=== PATIENT | female | born 1990 | race Hispanic/Latino ===

== ENCOUNTER 2017-09-22 09:20 | Inpatient (IN) | payer MEDICAID, OTHER, SELFPAY ==
[2017-09-22] MEDS: Lactated Ringer's 1,000 ML IV SCH ×3 (09:20→14:39)
[2017-09-22] MEDS ORDERED: Acetaminophen 500 MG TAB PO PRN (09:47)
[2017-09-22] MEDS ORDERED: Lidocaine 1% (PF) 30 ML VIAL SC PRN (09:47)
[2017-09-22] MEDS ORDERED: Promethazine HCl 25 MG/ML VIAL IM PRN ×2 (09:47→10:54)
[2017-09-22] MEDS ORDERED: Ondansetron HCl/PF 4 MG/2 ML Vial IVP PRN ×2 (09:47→10:54)
[2017-09-22 10:08] VITALS: BMI 27.3
[2017-09-22 10:10] LABS: Hemoglobin 13.2 g/dL (12.0-16.0); Mean Corpuscular HGB CONC 34.7 g/dL (32.0-36.0); Mean Corpuscular Hemoglobin 31.1 pg (27.0-31.0); Mean Corpuscular Volume 89.7 fl (81.0-99.0); Mean Platelet Volume 9.2 fL (7.4-10.4); Platelet Count 174 thou/uL (130-400); RBC Distribution Width 13.3 % (11.5-14.5); Red Blood Cell (RBC) Count 4.23 mill/uL (4.20-5.40); White Blood Cell (WBC) Count 9.7 thou/uL (4.8-10.8)
[2017-09-22] MEDS ORDERED: Fentanyl 4 mcg/Marc 0.1% Cadd 100 ML ONE (10:15)
[2017-09-22 10:46] LABS: HBSAg Index 0.25 S/CO (0-0.99); Hep B Surf Ag Non-Reactive S/CO (NonReactive)
[2017-09-22 10:54] LABS: Syphilis Antibody Nonreactive (Nonreactive); Syphilis Antibody Index 0.71 S/CO (<1.00 Non-Reactive)
[2017-09-22] MEDS ORDERED: Lactated Ringer's 500 ML IV PRN (10:54)
[2017-09-22] MEDS ORDERED: diphenhydrAMINE 50 MG/ML VIAL IVP PRN (10:54)
[2017-09-22] MEDS ORDERED: Acetaminophen 325 MG TAB PO PRN (10:54)
[2017-09-22] MEDS ORDERED: ePHEDrine/0.9% NaCl/PF SYRINGE 50 mg/10 ml SLOW IVP PRN (10:54)
[2017-09-22] MEDS ORDERED: Naloxone HCl 0.4 mg/ml Vial IVP PRN ×2 (10:54)
[2017-09-22] MEDS ORDERED: Eucerin (Mineral Oil/Petrolatum,White) 30 gm Jar TOP PRN (10:54)
[2017-09-22] MEDS ORDERED: Communication Order-Pharmacy FS SCH (11:00)
[2017-09-22] MEDS ORDERED: ePHEDrine/0.9% NaCl/PF SYRINGE 50 mg/10 ml ONE (11:00)
[2017-09-22] MEDS ORDERED: Bupivacaine/Epinephrine 0.25% 30 ML VIAL ONE (11:00)
[2017-09-22] MEDS ORDERED: Fentanyl 4mcg/Marcaine 0.1% Cassette 100 ML EPIDURAL SCH (11:00)
--- NOTE | 2017-09-22 11:12 | PDOC.LDHP ---
Labor and Delivery H&P Chief complaint: contractions HPI: 27 year old at 38.4 wks by LMP/11.6 wk U/S presents to L&D with contractions. No complications in current . Current gestational age (weeks): 38 (38.4 wks) Due date: 10/02/17 Dating criteria: last menstrual period, first trimester ultrasound Grav: 2 Para: 1 OB History Details: No complications Current complications: none Abnormal US findings: No Current medications: pre- vitamins Previous surgical history: none Social history: none - Physical Exam Vital signs reviewed and normal: yes General: NAD, breathing through contractions Heart: RRR Lungs: nonlabored breathing Abdomen: NTTP Extremeties: no edema FHT: category 1, variability present - Vaginal Exam cm dilated: 8 Effacement: 90% Station: 0 - OB Labs Blood type: O RH: positive Antibody Screen: negative HIV: negative RPR: negative HEPSAg: negative 1 hour GCT: negative GBS: negative Rubella: immune - Assessment L&D Assessment: term patient in labor - Plan Plan: admit to L&D -: Expectant management <Ruth Poon - Last Filed: 09/22/17 11:10> <Vishnu Centeno - Last Filed: 09/24/17 09:46> Allergies/Adverse Reactions: Allergies Allergy/AdvReac Type Severity Reaction Status Date / Time No Known Allergies Allergy Verified 11/09/15 14:31 Attending Addendum - Attending Addendum I personally evaluated the patient and discussed the management with Dr. Casas. I agree with the History, Examination, Assessment and Plan documented above with any addition or exceptions noted below. Active labor, anticipate delivery soon. <Vishnu Centeno - Last Filed: 09/24/17 09:46>
--- NOTE | 2017-09-22 12:43 | PDOC.LDPN ---
Labor & Delivery Progress Note - Subjective Subjective: comfortable - Objective Vital signs reviewed and normal: yes General: resting Uterine fundus: non tender Dilation: 8 Effacement: 75% Station: -2 FHT: category 1 (150/mod/+accel/no decel) [place] contractions every: 3-7 min AROM: meconium stained fluid FSE placed: yes Plan: continue plan of care
[2017-09-22] MEDS: LR / Pitocin 40 units/1000 ml 1,000 ML IV PRN ×2 (15:35→17:59)
[2017-09-22] MEDS ORDERED: LR / Pitocin 40 units/1000 ml 1,000 ML IV SCH (18:21)
[2017-09-22] MEDS ORDERED: Milk Of Magnesia 30 ML UDCUP PO PRN (18:21)
[2017-09-22] MEDS ORDERED: Lanolin Ointment 7 GM TUBE TOP PRN (18:21)
[2017-09-22] MEDS ORDERED: Preparation H Ointment 28 GM TUBE PR PRN (18:21)
[2017-09-22] MEDS ORDERED: Bisacodyl 10 MG SUPP PR PRN (18:21)
[2017-09-22] MEDS: LR 500 ML/Oxytocin 10 units 500 ML IV SCH (18:56)
[2017-09-22] MEDS: Docusate Calcium (SURFAK) 240 MG CAP PO SCH (21:53)
[2017-09-22] MEDS: Ibuprofen 800 MG TAB PO SCH (21:53)
[2017-09-23] MEDS: Ibuprofen 800 MG TAB PO SCH ×3 (05:40→21:56)
[2017-09-23] MEDS ORDERED: Benzocaine/Menthol 20-0.5% 60 ML CAN TOP PRN (06:05)
--- NOTE | 2017-09-23 07:55 | PDOC.PP ---
Post Progress Note Post Day #: 1 Subjective: Feeling ok. Ongoing perineal pain. Would like something stronger for pain. She feels is going ok but doesn't know if baby is getting enough. Would like to stay another day for pain control. PO intake tolerated: yes Flatus: yes Ambulation: yes Vital Signs (12 hours) Temp Pulse Resp BP 09/23/17 05:40 97.7 F 73 18 107/66 09/23/17 00:00 98.1 F 68 18 93/52 L 09/22/17 20:35 98.7 F 76 20 98/56 L 09/22/17 20:00 98.4 F 76 18 109/57 L Weight Weight 65.771 kg - Physical Examination General: NAD Cardiovascular: no m/r/g, RRR Respiratory: clear to auscultation bilaterally Abdominal: + bowel sounds, lochia (minimal), no distention, appropriately TTP Fundus firm & at: [email or web address] Extremities: negative homans (B) Skin: no rash Neurological: no gross focal deficits Psychiatric: A&Ox3, normal affect Result Diagrams: 09/22/17 09:55 Additional Labs: Post Labs Blood Type O POSITIVE 09/22/17 09:55 Hep Bs Antigen Non-Reactive S/CO (NonReactive) 09/22/17 09:55 - Assessment/Plan 1. PPD#1 - Meeting all PP milestones - Will add tramadol for improved pain control - consultation today if Arlen available - Encourage ambulation - Likely discharge tomorrow <Gail Bangura - Last Filed: 09/23/17 07:53> Vital Signs (12 hours) Temp Pulse Resp BP 09/24/17 08:20 98.2 F 57 L 16 09/24/17 07:49 98.2 F 57 L 16 101/51 L Weight Weight 65.771 kg Result Diagrams: 09/22/17 09:55 Additional Labs: Post Labs Blood Type O POSITIVE 09/22/17 09:55 Hep Bs Antigen Non-Reactive S/CO (NonReactive) 09/22/17 09:55 <Vishnu Centeno - Last Filed: 09/24/17 09:44> Attending Addendum - Attending Addendum I personally evaluated the patient and discussed the management with Dr. Bangura. I agree with the History, Examination, Assessment and Plan documented above with any addition or exceptions noted below. Pain not quite controlled, though hasn't asked for pain meds. Breast feeding difficulties, requests stay and consultation. Vitals normal afeb. Fundus firm. continue care. encourage ambulation. <Vishnu Centeno - Last Filed: 09/24/17 09:44>
[2017-09-23] MEDS ORDERED: traMADol HCl 50 MG TAB PO PRN (07:56)
[2017-09-23] MEDS ORDERED: Adacel (T-DAP) 0.5 ML VIAL IM ONE (09:00)
[2017-09-23] MEDS: Prenatal Vitamin 1 TAB PO SCH (09:21)
[2017-09-23] MEDS: Docusate Calcium (SURFAK) 240 MG CAP PO SCH ×2 (09:21→21:57)
[2017-09-23] MEDS: Ferrous Sulfate 325 MG TAB PO SCH ×2 (09:21→16:13)
[2017-09-23] MEDS: LR 500 ML/Oxytocin 10 units 500 ML IV SCH (15:03)
--- NOTE | 2017-09-24 01:14 | DN-2 ---
DELIVERING PHYSICIAN: Gail Bangura M.D. ATTENDING PHYSICIAN: Vishnu Centeno M.D. PROCEDURE: Spontaneous vaginal delivery. ANESTHESIA: Epidural. ESTIMATED BLOOD LOSS: 200 mL PREOPERATIVE DIAGNOSES: Term intrauterine , in labor. POSTOPERATIVE DIAGNOSES: Term intrauterine , delivered. INDICATIONS: A 27-year-old female G2, P1-0-0-1, now P2-0-0-2 presented in active labor. DELIVERY NOTE: This is a 27-year-old female, G2, P1-0-0-1, now P2-0-0-2 at 38 weeks and 4 days, who delivered a viable female at 1527 hours. Following an uneventful antepartum course, a vigorous female infant was delivered over a midline second-degree laceration in the occipitoanterior position. Anterior shoulder and the remainder of body delivered. No nuchal cord. The head was held down and mouth and nares were bulb suctioned. Cord clamped and cut and cord blood collected after delayed cord clamping. Placenta delivered intact with a 3-vessel cord noted. Fundal massage was performed and the fundus was firm. The cervix and vagina were inspected and a midline second- degree perineal laceration was repaired with 3-0 Vicryl suture with good approximation and hemostasis in the usual fashion. went to nursery in good condition for routine care. Apgars were 9 and 9 at 1 and 5 minutes, respectively. The patient tolerated delivery well and went to after routine recovery. I personally evaluated the patient and discussed indications for the procedure described by Dr. Bangura. I agree with the description of procedure as documented above with any addition or exceptions noted below: with 2nd degree Lac, repaired without complications. MTDD
[2017-09-24] MEDS: Ibuprofen 800 MG TAB PO SCH (05:25)
[2017-09-24 07:50] VITALS: BP 101/51; TEMP 98.2
[2017-09-24] MEDS: Ferrous Sulfate 325 MG TAB PO SCH (09:11)
[2017-09-24] MEDS: Docusate Calcium (SURFAK) 240 MG CAP PO SCH (09:11)
[2017-09-24] MEDS: Prenatal Vitamin 1 TAB PO SCH (09:11)
--- NOTE | 2017-09-24 10:35 | PDOC.PP ---
Post Progress Note Post Day #: 2 PO intake tolerated: yes Flatus: yes Ambulation: yes Vital Signs (12 hours) Temp Pulse Resp BP 09/24/17 08:20 98.2 F 57 L 16 09/24/17 07:49 98.2 F 57 L 16 101/51 L Weight Weight 65.771 kg - Physical Examination General: NAD Cardiovascular: no m/r/g, RRR Respiratory: clear to auscultation bilaterally, non-labored breathing Abdominal: + bowel sounds, lochia (minimal), no distention, appropriately TTP Fundus firm & at: umbilicus Extremities: negative homans (B) Neurological: no gross focal deficits Psychiatric: A&Ox3, normal affect Result Diagrams: 09/22/17 09:55 Additional Labs: Post Labs Blood Type O POSITIVE 09/22/17 09:55 Hep Bs Antigen Non-Reactive S/CO (NonReactive) 09/22/17 09:55 (1) Status: Acute - Assessment/Plan 1. PPD#2 - Meeting all PP milestones - Tramadol added but not requested, pain well controlled on Ibuprofen - Very much appreciate Arlen's assistance - Encourage ambulation - Discharge this afternoon <Gail Bangura - Last Filed: 09/24/17 10:33> Weight Weight 65.771 kg Result Diagrams: 09/22/17 09:55 Additional Labs: Post Labs Blood Type O POSITIVE 09/22/17 09:55 Hep Bs Antigen Non-Reactive S/CO (NonReactive) 09/22/17 09:55 <Vishnu Centeno - Last Filed: 12/01/17 16:32> Attending Addendum - Attending Addendum Date/Time: 12/01/17 [id number] I personally evaluated the patient and discussed the management with Dr. Bangura. I agree with the History, Examination, Assessment and Plan documented above with any addition or exceptions noted below. Pain controlled. Lochia normal. Afeb. Fundus Firm. Stable for d/c home. <Vishnu Centeno - Last Filed: 12/01/17 16:32>
== END 2017-09-24 12:30 | disposition home or self-care (01) | DRG 775 ==
LOC: L&D/OP 09:20 → L&D 10:29 → 3SW 18:13
PROVIDERS: ADMIT Family Medicine; ATTEND Family Medicine
PROC: 10E0XZZ Delivery of Products of Conception, External Approach (ICD-10-PCS; principal; 2017-09-22)
PROC: 0KQM0ZZ Repair Perineum Muscle, Open Approach (ICD-10-PCS; 2017-09-22)
PROC: 10907ZC Drainage of Amniotic Fluid, Therapeutic from Products of Conception, Via Natural or Artificial Opening (ICD-10-PCS; 2017-09-22)
DX: O70.1 Second degree perineal laceration during delivery (principal); Z37.0 Single live birth; Z3A.38 38 weeks gestation of pregnancy
CPT/HCPCS: 51702; 85027; 86780; 87340; 99285; J2001; J7120